=== PATIENT | female | born 1960 | race Caucasian/White ===

== ENCOUNTER → 2017-01-21 | Outpatient (CLI) | payer MEDICARE, OTHER ==
[~2017-01-21] MED LIST: CERTAVITE-ANTI1 EACH PO; HYDROCHLOROTHIA25 MG PO; HYDROCODON-ACE1 EAC5 PO; LEVAQUIN TAB 5500 MG PO; METOPROLOL TART25 MG PO; NORVASC5 MG PO; OYSTER SHELL C500 MG PO; PHILLIPS'400 MG/5 M PO; PREMPRO 0.625-1 EAC1 PO; PROVERA2.5 MG PO; SENOKOT8.6 MG PO; TOVIAZ4 MG PO; TRAZODONE HCL100 MG PO; ZESTRIL/PRINIVI10 MG PO; ZOFRAN4 MG PO; ZOLOFT50 MG PO
== END ==
LOC: OPSV 11:00
DX: L08.9 Local infection of the skin and subcutaneous tissue, unspecified (principal); M86.672 Other chronic osteomyelitis, left ankle and foot; L02.416 Cutaneous abscess of left lower limb
CPT/HCPCS: G0463

== ENCOUNTER → 2017-04-27 | Outpatient (CLI) | payer MEDICARE, OTHER | LOC: OPSV 04-18 13:00 | DX: M86.8X7 Other osteomyelitis, ankle and foot (principal) | CPT/HCPCS: G0463 ==